=== PATIENT | female | born 1950 | race Caucasian/White ===

== ENCOUNTER → 2017-09-27 | Outpatient (CLI) | payer MEDICARE ==
[~2017-09-27] MED LIST: APRISO0.375 GM PO; ASCORBIC ACID500 M3 PO; ATORVASTATIN CA10 MG PO; B-12 KIT1000 MCG/1 IM; BENADRYL25 MG PO; BENEFIBER1 EACH PO; BENTYL10 MG PO; BENTYL20 MG PO; BISA-LAX5 MG PO; BISACODYL5 MG PO; CATHFLO ACT2 MG/2 ML IV; CEFTRIAXONE2 G1 IV; CELEXA10 MG PO; CHOLESTYRAMINE L4 GM PO; COLACE100 MG PO; COLAZAL750 MG PO; COUMADIN1 MG PO; CYMBALTA30 MG PO; DICYCLOMINE HCL20 MG PO; DIFLUCAN200 MG/100 IV; DOCUSATE SODIU100 MG PO; DOXYCYCLINE HY100 M3 PO; DULCOLAX10 MG PR; ENEMA133 M2 PR; ERGOCALCIF50000 UNIT PO; ESCITALOPRAM OX10 MG PO; FERROUS SULFAT325 MG PO; FLAGYL500 MG PO; FLEXERIL10 MG PO; FOLIC ACID1 MG PO; IMODIUM MS REL1 EACH PO; IRON325 M1 PO; LAXATIVE5 M1 PO; LEVBID0.375 MG PO; LEXAPRO10 MG PO; LIDOCAINE700 MG TD; LIDODERM 5% P1 PATCH TD; LINEZOLID600 MG PO; LIPITOR10 MG PO; LORTAB 5-325 M1 EACH PO; MELATIN3 MG PO; MELOXICAM15 MG PO; MELOXICAM7.5 MG PO; MEROPENEM1 GM IV; MERREM1 GM IV; METAXALONE800 MG PO; METHOCARBAMOL500 MG PO; MILK OF MAGN PO; MILK OF MAGNESI10 ML PO; MOTRIN600 MG PO; MOTRIN800 MG PO; MYCOSTATIN 100,60 ML PO; NYSTATIN100000 UN1 PO; NYSTATIN15 GM TP; OMEPRAZOLE20 M2 PO; OSTEO BI-FLEX1 EAC1 PO; OSTEO BI-FLEX1 EAC2 PO; OSTEO BI-FLEX1 EAC3 PO; OXAYDO5 MG PO; OXYCODONE HCL5 MG PO; OXYCODONE-ACET1 EACH PO; OXYCONTIN10 MG PO; PANTOPRAZOLE SO40 MG PO; PERCOCET 10/1 TABLET PO; PRAVACHOL40 MG PO; PRILOSEC20 MG PO; PROMETHAZINE HC25 M1 PO; PROTONIX20 MG PO; PROTONIX40 MG PO; ROXICODONE5 MG PO; SENNA PLUS TAB1 EACH PO; SIMVASTATIN10 MG PO; SIMVASTATIN20 MG PO; SOMA350 MG PO; TYLENOL REGULA325 MG PO; VANCOMYCIN HCL1 GM IV; VANCOMYCIN1 GM/150 M IV; VANCOMYCIN1 GM/250 M IV; VENTOLIN HFA18 GM IH; VITAMIN B12 IM; VITAMIN B122500 MCG PO; VITAMIN D31000 UNI2 PO; VOLTAREN75 MG PO; XARELTO10 MG PO; ZANTAC150 M1 PO; ZANTAC150 MG PO; ZOCOR20 MG PO; ZOSYN 3.3753.375 GM IV; ZYVOX600 MG PO; [UNRECOGNIZED DRUG - OTHER] PO
== END | disposition home or self-care (01) ==
LOC: CDC 10:22
DX: Z01.810 Encounter for preprocedural cardiovascular examination (principal); M25.511 Pain in right shoulder; M75.121 Complete rotator cuff tear or rupture of right shoulder, not specified as traumatic
CPT/HCPCS: 93000